=== PATIENT | female | born 1955 | race Two or more races ===

== ENCOUNTER → 2024-07-07 | Outpatient (CLI) | payer OTHER ==
[2024-07-07 08:00] LABS: Basophils # (auto) 0 10 ^3/uL (0-0.2); Basophils % (auto) 0.5 % (0.0-2.0); Eosinophils # (auto) 0.3 10 ^3/uL (0-0.8); Eosinophils % (auto) 4.2 % (0.0-7.0); Hematocrit 43.2 % (36.0-46.0); Lymphocytes % (auto) 24.5 % (10.0-50.0); Mean Corpuscular Hemoglobin 27.5 pg (28.0-32.0); Mean Corpuscular Hgb Conc. 32.5 g/dL (32.0-36.0); Mean Corpuscular Volume 84.5 fL (80.0-100.0); Monocytes # (auto) 0.6 10 ^3/uL (0-1.3); Monocytes % (auto) 7.1 % (0.0-12.0); Neutrophils # (auto) 5.1 10 ^3/uL (1.6-8.6); Neutrophils % (auto) 63.7 % (37.0-80.0); Nucleated Red Blood Cells % 0.1 %; Platelet Count (auto) 249 10^3/uL (140-450); Red Blood Cells 5.11 10^6/uL (4.0-5.20)
[2024-07-07 08:13] LABS: Alanine Aminotransferase 14 U/L (7-40); Albumin 4.4 g/dL (3.2-4.8); Alkaline Phosphatase 53 U/L (46-116); Anion Gap 9 (5-15); Aspartate Aminotransferase 17 U/L (13-40); BUN/Creatinine Ratio 19.3 (10.0-20.0); Carbon Dioxide 29 mmol/L (20-31); Chloride 106 mmol/L (98-107); Cholesterol 130 mg/dL (< 200); HDL Cholesterol 47 mg/dL (40-59); LDL Cholesterol 66 mg/dL (< 100); Magnesium 2.1 mg/dL (1.6-2.6); Potassium 4.6 mmol/L (3.5-5.1); Sodium 144 mmol/L (136-145); Triglycerides 86 mg/dL (< 150); Urine Bacteria FEW /hpf (None Seen); Urine Blood Negative /uL (Negative); Urine Clarity Turbid (Clear); Urine Color Colorless (Yellow); Urine Protein, UAD Negative (Negative); Urine Specific Gravity 1.017 (1.001-1.035); Urine Squamous Epithelial Cell FEW /hpf (<5); Urine Urobilinogen Normal (Negative); Urine WBC 56 /HPF (0-5); Urine pH 5.5 (5.0-9.0)
[2024-07-07 08:14] LABS: Bilirubin, Total 0.5 mg/dL (0.2-1.0)
[2024-07-07 08:15] LABS: Blood Urea Nitrogen 26 mg/dL (9-23); Calcium 10.4 mg/dL (8.7-10.4); Glucose 108 mg/dL (74-106)
[2024-07-07 08:31] LABS: % Iron Saturation 16.6 % (15-50)
[2024-07-07 08:48] LABS: Free T3 3.11 pg/mL (2.3-4.2); T3 Total 1.49 ng/mL (0.60-1.81)
[2024-07-07 09:01] LABS: Free T4 (Free Thyroxine) 1.34 ng/dL (0.89-1.76)
== END | disposition home or self-care (01) ==
LOC: LAB 07:15
PROVIDERS: ATTEND Family Medicine
DX: I12.9 Hypertensive chronic kidney disease with stage 1 through stage 4 chronic kidney disease, or unspecified chronic kidney disease (principal); E11.22 Type 2 diabetes mellitus with diabetic chronic kidney disease; N18.9 Chronic kidney disease, unspecified; Z71.89 Other specified counseling
CPT/HCPCS: 36415; 80053; 80061; 81001; 82306; 82607; 83036; 83540; 83550; 83735; 84403; 84439; 84480; 84481; 84550; 85025; 87086

== ENCOUNTER → 2024-08-10 | Outpatient (CLI) | payer OTHER ==
[2024-08-10 06:40] LABS: Urine Bacteria FEW /hpf (None Seen); Urine Blood Negative /uL (Negative); Urine Clarity Turbid (Clear); Urine Color Light-Yellow (Yellow); Urine Protein, UAD Negative (Negative); Urine Specific Gravity 1.018 (1.001-1.035); Urine Squamous Epithelial Cell FEW /hpf (<5); Urine Urobilinogen Normal (Negative); Urine WBC 2 /HPF (0-5)
[2024-08-10 06:56] LABS: Alanine Aminotransferase 13 U/L (7-40); Albumin 4.1 g/dL (3.2-4.8); Alkaline Phosphatase 49 U/L (46-116); Anion Gap 7 (5-15); Aspartate Aminotransferase 14 U/L (13-40); BUN/Creatinine Ratio 22.9 (10.0-20.0); Calcium 10.4 mg/dL (8.7-10.4); Carbon Dioxide 29 mmol/L (20-31); Chloride 105 mmol/L (98-107); Cholesterol 127 mg/dL (< 200); LDL Cholesterol 67 mg/dL (< 100); Potassium 4.9 mmol/L (3.5-5.1); Sodium 141 mmol/L (136-145); Total Protein 6.7 g/dL (5.7-8.2); Triglycerides 107 mg/dL (< 150)
[2024-08-10 06:57] LABS: Bilirubin, Total 0.6 mg/dL (0.2-1.0); HDL Cholesterol 42 mg/dL (40-59)
[2024-08-10 06:59] LABS: Blood Urea Nitrogen 27 mg/dL (9-23); Glucose 119 mg/dL (74-106)
== END | disposition home or self-care (01) ==
LOC: LAB 06:11
PROVIDERS: ATTEND Family Medicine
DX: E11.9 Type 2 diabetes mellitus without complications (principal); E55.9 Vitamin D deficiency, unspecified; I48.91 Unspecified atrial fibrillation; G62.9 Polyneuropathy, unspecified
CPT/HCPCS: 36415; 80053; 80061; 81001; 83036

== ENCOUNTER → 2024-10-14 | Outpatient (CLI) | payer OTHER ==
[2024-10-14 07:54] LABS: Alanine Aminotransferase 13 U/L (7-40); Albumin 4.2 g/dL (3.2-4.8); Anion Gap 5 (5-15); BUN/Creatinine Ratio 22.3 (10.0-20.0); Bilirubin, Total 0.4 mg/dL (0.2-1.0); Calcium 9.8 mg/dL (8.7-10.4); Carbon Dioxide 29 mmol/L (20-31); Chloride 107 mmol/L (98-107); Potassium 4.9 mmol/L (3.5-5.1); Sodium 141 mmol/L (136-145); Total Protein 6.8 g/dL (5.7-8.2); Uric Acid 7.8 mg/dL (3.1-7.8)
[2024-10-14 07:57] LABS: Blood Urea Nitrogen 29 mg/dL (9-23); Glucose 110 mg/dL (74-106); Hematocrit 41.9 % (36.0-46.0); Hemoglobin 13.9 g/dL (12.2-16.2); Mean Corpuscular Hemoglobin 27.7 pg (28.0-32.0); Mean Corpuscular Volume 83.7 fL (80.0-100.0); Nucleated Red Blood Cells % 0.1 %
[2024-10-14 08:02] LABS: Alkaline Phosphatase 42 U/L (46-116)
== END | disposition home or self-care (01) ==
LOC: LAB 06:12
PROVIDERS: ATTEND Internal Medicine Nephrology
DX: E11.22 Type 2 diabetes mellitus with diabetic chronic kidney disease (principal); N18.30 Chronic kidney disease, stage 3 unspecified; E55.9 Vitamin D deficiency, unspecified; E11.21 Type 2 diabetes mellitus with diabetic nephropathy; M10.9 Gout, unspecified; D63.1 Anemia in chronic kidney disease; N39.0 Urinary tract infection, site not specified; E21.3 Hyperparathyroidism, unspecified; R80.9 Proteinuria, unspecified
CPT/HCPCS: 36415; 80053; 82306; 83036; 83970; 84550; 85025

== ENCOUNTER 2024-11-03 07:09 | Day surgery (SDC) | payer OTHER, MEDICAID ==
[2024-11-01 12:42] LABS: Hematocrit 43.5 % (36.0-46.0); Hemoglobin 14.4 g/dL (12.2-16.2); Mean Corpuscular Hemoglobin 27.6 pg (28.0-32.0); Mean Corpuscular Volume 83.4 fL (80.0-100.0); Nucleated Red Blood Cells % 0.1 %
[2024-11-01 12:52] LABS: INR 1.07 (0.9-1.15); Partial Thromboplastin Time 25.2 SEC (24.5-34.5); Prothrombin Time 11.3 sec (9.3-11.8)
[2024-11-01 13:02] LABS: Urine Protein, UAD Negative (Negative)
[2024-11-01 13:16] LABS: Alanine Aminotransferase 18 U/L (7-40); Albumin 4.3 g/dL (3.2-4.8); Alkaline Phosphatase 47 U/L (46-116); Anion Gap 6 (5-15); BUN/Creatinine Ratio 20.5 (10.0-20.0); Bilirubin, Total 0.4 mg/dL (0.2-1.0); Calcium 9.8 mg/dL (8.7-10.4); Carbon Dioxide 29 mmol/L (20-31); Potassium 4.9 mmol/L (3.5-5.1); Sodium 143 mmol/L (136-145); Total Protein 6.9 g/dL (5.7-8.2)
[2024-11-01 13:17] LABS: Blood Urea Nitrogen 27 mg/dL (9-23); Chloride 108 mmol/L (98-107); Glucose 112 mg/dL (74-106)
[~2024-11-03] VITALS: Ht 157.5 cm; Wt 96.6 kg
[2024-11-03] VITALS (7 sets, daily range): BP systolic 111–131; BP diastolic 62–88; PULSE 61–82; RESP 12–19; O2SAT 90–99
[~2024-11-03 07:09] MED LIST: ALLO100T PO; ALLOPURINOL 100 MG TAB PO SCH; APIX5TAB PO; ASPI-543 PO; CHOL20007 PO; CHOLECALCIFEROL (VITD3) 1,000UNIT=25mCg TAB PO SCH; DULA1INJ SC; FENO160T PO; GABA-1250 PO; GABAPENTIN 300 MG CAP PO SCH; LOSA-534 PO; LOSARTAN POTASSIUM 50 MG TAB PO SCH; METO25TA5 PO; METOPROLOL TARTRATE 25 MG TAB PO SCH
[2024-11-03] MEDS: fentaNYL CITRATE 100 MCG/2 ML VL ONE (09:57)
[2024-11-03] MEDS: ANGIOMAX 250 MG VIAL IV ONE (09:57)
[2024-11-03] MEDS: MIDAZOLAM HCL 2MG/2ML 2ml VIAL (1mg/ml) ONE (09:57)
[2024-11-03] MEDS: LIDOCAINE 2%HCL (LOCAL ANESTH.) INJ 20ML MDV ONE (09:58)
[2024-11-03] MEDS: SODIUM CHL 0.9% 0 ML ONE (09:58)
[2024-11-03] MEDS: IODIXANOL 320MG/ML 100ML BTL IV ONE (09:59)
--- NOTE | 2024-11-03 11:24 | DVHOP2 ---
Operative Report - 2 Report Details Date: 11/03/24 Preop Diagnosis: Peripheral vascular disease, claudication Postop Diagnosis: No significant PAT. Neuropathy. Surgeon: Eli Hammond MD Anesthesiologist: Conscious sedation Anesthesia: Mac, Local Consent: The patient was informed of the risks and benefits of the procedure. These include but are not limited to complications of anesthesia, postoperative infection, incomplete relief of symptoms, recurrence of symptoms, damage to blood vessels, nerves and tendons, deep venous thrombosis, pulmonary embolism and possible need for repeat surgery in the future. Complications: No complications Findings: No significant PND Indications for Surgery: Claudication. Abnormal vascular studies Name of Procedure Performed Peripheral angiographic evaluation of bilateral lower extremities Procedure Details Procedure Details: Prior local anesthesia with 2% lidocaine to the right groin and full informed consent obtained the patient was prepped and draped in the usual fashion under fluoroscopic and ultrasound guidance we gained access into the femoral artery of the right lower extremity. We placed a six [place] sheath followed by a runoff of the right lower extremity. This was followed by placement of a rim catheter into the right femoral sheath and over the horn contralaterally into the origin of the left iliac. Runoff to the level of the foot was also performed. No complications. We then withdrew the catheter and performed run off the right iliac and distal right lower extremity in its entirety. No complications Hemodynamics: Aortic blood pressure was 150/90. Angiographic evaluation reveals patent iliacs bilaterally without stenosis. Common iliacs internal iliacs, external iliacs were all normal. Bilateral femoral arteries and superficial femoral arteries are normal. The popliteals are normal bilaterally. The right tibial peroneal trunk is normal. The posterior tibial is large and there was runoff all the way to the ankle and left foot. The peroneal artery ends in the ankle. The anterior tibial artery is rather short and is a mid catheterization. No significant lesions are noted. The left popliteal and left tibioperoneal trunk is normal. The posterior tibial artery on the left is a large and normal vessel. The anterior tibial and peroneal arteries are patent however rather small. Impression: No significant PA D. normal runoff to the level of the feet bilaterally. Recommendations medical therapy is warranted continue risk factor modification. Condition Good Disposition Home Date of Service: Nov 03, 2024 Billing Provider: ELI HAMMOND Sr., MD Cardiology Common Codes: 78046-ZVSFLXO INP/OBS CARE (High) Peripheral Procedures Codes: 37943-[id number] RAD SUP/INTERP ELI HAMMOND Sr., MD Nov 03, 2024 11:24
== END 2024-11-03 13:15 | disposition home or self-care (01) ==
LOC: CATH 07:09
PROVIDERS: ATTEND Internal Medicine
DX: E11.51 Type 2 diabetes mellitus with diabetic peripheral angiopathy without gangrene (principal); I73.9 Peripheral vascular disease, unspecified; E66.9 Obesity, unspecified; Z68.42 Body mass index [BMI] 45.0-49.9, adult
CPT/HCPCS: 36245; 36415; 75716; 80053; 81001; 82962; 85025; 85610; 85730; C1760; C1769; C1894; J1644; J2250; J3010; J7030; Q9967; 99152

== ENCOUNTER 2024-11-15 06:04 | Outpatient (CLI) | payer OTHER, MEDICAID ==
[~2024-11-15 06:04] MED LIST changes: -ALLOPURINOL 100 MG TAB PO SCH; -CHOLECALCIFEROL (VITD3) 1,000UNIT=25mCg TAB PO SCH; -GABAPENTIN 300 MG CAP PO SCH; -LOSARTAN POTASSIUM 50 MG TAB PO SCH; -METOPROLOL TARTRATE 25 MG TAB PO SCH
[2024-11-15 07:10] LABS: Urine Protein, UAD Negative (Negative)
[2024-11-15 07:17] LABS: Alanine Aminotransferase 14 U/L (7-40); Albumin 4.2 g/dL (3.2-4.8); Anion Gap 8 (5-15); BUN/Creatinine Ratio 20.4 (10.0-20.0); Bilirubin, Total 0.5 mg/dL (0.2-1.0); Calcium 9.5 mg/dL (8.7-10.4); Carbon Dioxide 28 mmol/L (20-31); Cholesterol 129 mg/dL (< 200); HDL Cholesterol 49 mg/dL (40-59); Potassium 5.0 mmol/L (3.5-5.1); Sodium 144 mmol/L (136-145); Total Protein 6.5 g/dL (5.7-8.2); Triglycerides 110 mg/dL (< 150)
[2024-11-15 07:23] LABS: Alkaline Phosphatase 44 U/L (46-116); Blood Urea Nitrogen 29 mg/dL (9-23); Chloride 108 mmol/L (98-107); Glucose 133 mg/dL (74-106)
== END 2024-11-15 17:00 | disposition home or self-care (01) ==
LOC: LAB 06:04
PROVIDERS: ATTEND Family Medicine
DX: E11.40 Type 2 diabetes mellitus with diabetic neuropathy, unspecified (principal); I99.8 Other disorder of circulatory system; E55.9 Vitamin D deficiency, unspecified; Z79.899 Other long term (current) drug therapy
CPT/HCPCS: 36415; 80053; 80061; 81001; 83036; 87086

== ENCOUNTER 2025-01-11 06:01 | Outpatient (CLI) | payer OTHER, MEDICAID ==
[2025-01-11 07:29] LABS: Urine Protein, UAD TRACE (Negative)
[2025-01-11 07:32] LABS: Hematocrit 40.5 % (36.0-46.0); Hemoglobin 13.4 g/dL (12.2-16.2); Mean Corpuscular Hemoglobin 27.8 pg (28.0-32.0); Mean Corpuscular Volume 83.8 fL (80.0-100.0); Nucleated Red Blood Cells % 0.0 %
[2025-01-11 07:36] LABS: Alanine Aminotransferase 11 U/L (7-40); Alkaline Phosphatase 49 U/L (46-116); Anion Gap 9 (5-15); BUN/Creatinine Ratio 19.4 (10.0-20.0); Calcium 9.7 mg/dL (8.7-10.4); Carbon Dioxide 29 mmol/L (20-31); Chloride 106 mmol/L (98-107); Magnesium 1.9 mg/dL (1.6-2.6); Potassium 4.3 mmol/L (3.5-5.1); Sodium 144 mmol/L (136-145); Total Protein 6.9 g/dL (5.7-8.2); Triglycerides 117 mg/dL (< 150)
[2025-01-11 07:37] LABS: Albumin 4.1 g/dL (3.2-4.8); Bilirubin, Total 0.4 mg/dL (0.2-1.0); Blood Urea Nitrogen 25 mg/dL (9-23); Cholesterol 115 mg/dL (< 200); Glucose 120 mg/dL (74-106); HDL Cholesterol 52 mg/dL (40-59)
== END 2025-01-11 17:00 | disposition home or self-care (01) ==
LOC: LAB 06:01
PROVIDERS: ATTEND Family Medicine
DX: E11.22 Type 2 diabetes mellitus with diabetic chronic kidney disease (principal); N18.30 Chronic kidney disease, stage 3 unspecified; N39.0 Urinary tract infection, site not specified; R80.9 Proteinuria, unspecified; E21.3 Hyperparathyroidism, unspecified; M10.9 Gout, unspecified; E55.9 Vitamin D deficiency, unspecified; E11.21 Type 2 diabetes mellitus with diabetic nephropathy; E11.40 Type 2 diabetes mellitus with diabetic neuropathy, unspecified; K46.0 Unspecified abdominal hernia with obstruction, without gangrene; D63.1 Anemia in chronic kidney disease
CPT/HCPCS: 36415; 80053; 80061; 81001; 82306; 83036; 83735; 83970; 84100; 85025; 87086

== ENCOUNTER 2025-03-30 20:48 | Emergency (ER) | payer OTHER, MEDICAID ==
[~2025-03-30] VITALS: Ht 157.5 cm; Wt 102.0 kg
[2025-03-30 20:56] VITALS: BP 178/79; PULSE 86; RESP 18; TEMP 99.3; O2SAT 93
--- NOTE | 2025-03-30 23:03 | DVH ---
CLINICAL INDICATION: LEFT FEMUR PAIN POST FALL TECHNIQUE: XYXY L FEMUR XRAY COMPARISON: None FINDINGS/IMPRESSION: : There is no evidence of acute fracture or dislocation. Soft tissues are unremarkable.
== END 2025-03-31 00:10 | disposition left against medical advice (07) ==
LOC: ER 20:48
DX: S89.92XA Unspecified injury of left lower leg, initial encounter (principal); Z53.21 Procedure and treatment not carried out due to patient leaving prior to being seen by health care provider; X58.XXXA Exposure to other specified factors, initial encounter; Y93.89 Activity, other specified; Y92.89 Other specified places as the place of occurrence of the external cause; Y99.8 Other external cause status